=== PATIENT | male | born 1965 | race Caucasian/White ===

== ENCOUNTER 2024-11-05 10:40 | Outpatient (CLI) | payer BC, SELFPAY ==
--- NOTE | 2024-11-05 11:00 | CRLHL7_ITS ---
For Patients: As a result of the Cures Act, medical imaging exams and procedure reports are released immediately into your electronic medical record. You may view this report before your referring provider. If you have questions, please contact your health care provider. INDICATION: S/P RADIATION TREATMENT FOR LUNG CANCER TECHNIQUE: CT chest without contrast. COMPARISON: May 2024. FINDINGS: Lungs and Airways: Decreasing size middle lobe mass now measuring 26 millimeters previous 38 millimeters. Subtle middle lobe interstitial smooth thickening likely interstitial edema. Subtle interval appearance of bandlike linear airspace opacity with traction bronchiectasis likely developing posttreatment change. Severe emphysema. Stable apical pulmonary micro nodules. Retained tracheal secretions. Heart and Mediastinum: No axillary or supraclavicular lymphadenopathy. No mediastinal, hilar or retrocrural lymphadenopathy. Normal heart size. Normal caliber aorta. Atherosclerotic coronary artery calcifications. Pleura: The pleural spaces are normal. Abdomen: Stable prominence of the common bile duct. Punctate bilateral nonobstructing renal stones. Bones and soft tissues: The skeletal structures and soft tissues of the chest wall are unremarkable. IMPRESSION: Decreasing size middle lobe mass now measuring 26 millimeters previous 38 millimeters. Subtle middle lobe interstitial smooth thickening likely interstitial edema. Subtle interval appearance of bandlike linear airspace opacity with traction bronchiectasis likely developing posttreatment change. Please note that all CT scans at this facility use dose modulation, iterative reconstruction, and/or weight-based dosing when appropriate to reduce radiation dose to as low as reasonably achievable. Dictated by Remigio Leavitt MD @ 11/05/2024 5:49:38 PM (Electronically Signed)
== END 2024-11-05 10:41 | disposition home or self-care (01) ==
LOC: CT 10:47
PROVIDERS: Visit Provider Radiology Radiation Oncology
DX: C34.2 Malignant neoplasm of middle lobe, bronchus or lung (principal); R91.8 Other nonspecific abnormal finding of lung field
CPT/HCPCS: 71250